=== PATIENT | female | born 1950 | race Caucasian/White ===

== ENCOUNTER 2017-12-03 12:07 | Observation (INO) ==
[2017-12-03] MEDS ORDERED: Morphine Inj 4 MG/ML Vial IV.PUSH ONE (12:22)
[2017-12-03 12:51] LABS: Baso # (Auto) 0.1 th/mm3 (0.0-0.2); Baso % (Auto) 0.7 % (0.0-2.0); Eos # (Auto) 0.1 th/mm3 (0.0-0.4); Eos % (Auto) 0.9 % (0.0-4.0); Hematocrit 35.6 % (35.0-46.0); Hemoglobin 12.6 gm/dL (11.6-15.3); Lymph # (Auto) 1.4 th/mm3 (1.0-4.8); Lymph % (Auto) 17.1 % (9.0-44.0); Mean Corpuscular HGB Conc 35.3 % (32.0-36.0); Mean Corpuscular Hemoglobin 36.7 pg (27.0-34.0); Mean Corpuscular Volume 103.8 fL (80.0-100.0); Mean Platelet Volume 6.9 fL (7.0-11.0); Mono # (Auto) 0.8 th/mm3 (0.0-0.9); Mono % (Auto) 9.5 % (0.0-8.0); Neut # (Auto) 5.8 th/mm3 (1.8-7.7); Neut % (Auto) 71.8 % (16.0-70.0); Platelet Count 128 th/mm3 (150-450); Red Blood Count 3.42 mil/mm3 (4.00-5.30); Red Cell Distribution Width 15.2 % (11.6-17.2); White Blood Count 8.1 th/mm3 (4.0-11.0)
[2017-12-03 13:01] LABS: Activated Partial Thrombo Time 21.9 sec (24.3-30.1); Prothrombin Time 10.4 sec (9.8-11.6)
--- NOTE | 2017-12-03 13:02 | XR ---
EXAM DATE: 12/03/2017 12:50 PM EDT AGE/SEX: 67 years / Female INDICATIONS: Congestion with mid sternal chest pains, radiating into right arm. CLINICAL DATA: This is the patient's initial encounter. Patient reports that signs and symptoms have been present for 2 days and indicates a pain score of 7/10. MEDICAL/SURGICAL HISTORY: None. None. COMPARISON: [facility] [place], 12/10/[place]. . FINDINGS: A single AP view of the chest demonstrates the lungs to be symmetrically aerated without evidence of mass, infiltrate or effusion. The cardiomediastinal contours are unremarkable. Osseous structures a re intact. CONCLUSION: No acute disease Electronically signed by: Thomas Amezquita MD 12/03/2017 1:00 PM EDT
[2017-12-03 13:09] LABS: Alanine Aminotransferase 19 U/L (10-53); Anion Gap 10 meq/L (5-15); Aspartate Aminotransferase 21 U/L (15-37); Blood Urea Nitrogen 11 mg/dL (7-18); Calcium 8.3 mg/dL (8.5-10.1); Carbon Dioxide 28.7 meq/L (21.0-32.0); Chloride 104 meq/L (98-107); Glomerular Filtration Rate Greater Than 89 mL/min (>89); Glucose,Random 232 mg/dL (74-106); Potassium 3.5 meq/L (3.5-5.1); Sodium 143 meq/L (136-145)
[2017-12-03 13:13] LABS: Alkaline Phosphatase 67 U/L (45-117); Total Protein 6.8 g/dL (6.4-8.2)
[2017-12-03 13:17] LABS: Creatine Kinase 96 U/L (26-192)
--- NOTE | 2017-12-03 14:25 | ED ---
HPI General Chief complaint: Chest Pain Stated complaint: Chest Pain Time Seen by Provider: 12/03/17 12:15 Source: patient Mode of arrival: ambulatory Limitations: no limitations History of Present Illness HPI narrative: Planing of chest pain and leg pain. She says the leg pain is been going on for the past few days and makes her feel like she cannot walk due to pain. She says she started to have left-sided chest pain on and off for the past 3 days. She says it was worse today, so she came in. She denies cough or cold symptoms. She denies fever chills. She has not taken anything for her pain. She has history of diabetes and hypertension, but has not had her medication for the past few days due to her living situation. Severity is mild to moderate. Related Data Home Medications Medication Instructions Recorded Confirmed atorvastatin 20 mg PO DAILY 12/03/17 12/03/17 lisinopril 10 mg PO DAILY 12/03/17 12/03/17 metformin 1,000 mg PO BID 12/03/17 12/03/17 Allergies Allergy/AdvReac Type Severity Reaction Status Date / Time No Known Allergies Allergy Verified 12/03/17 12:31 Review of Systems ROS: all other systems reviewed are negative Constitutional Denies chills and Denies fever(s) ENT Denies dizziness Cardiovascular Reports chest pain and Denies edema Respiratory Denies cough and Denies wheezing Gastrointestinal Denies abdominal pain and Reports nausea Musculoskeletal Reports myalgias Integumentary/Breasts Denies lesions, Denies rash and Denies sores Neurologic Denies focal weakness and Denies numbness [facility] Medical History Medical History Anxiety (Acute) Diabetes (Acute) Hypertension (Acute) Social History Social History Substance History: No History of Abuse Second Hand Smoke Exposure: Yes Smoking Status: Current every day smoker Tobacco Type: Cigarettes How Often Do You Have a Drink Containing Alcohol: 2 to 4 times a month Recent Travel in [facility] within the Last 8 Weeks: No Recent Out of Country Travel within the Last 8 Weeks: No Immunization History Tetanus Immunization: <5 Years Hx Influenza Vaccine This Season: Yes Exam Narrative Exam Narrative: GENERAL: Awake and alert, in no acute distress. SKIN: Focused skin assessment warm/dry. HEAD: Atraumatic. Normocephalic. EYES: Pupils equal and round. No scleral icterus. ENT: Mucous membranes pink and moist. NECK: Trachea midline. No JVD. CARDIOVASCULAR: Regular rate and rhythm. No murmur appreciated. RESPIRATORY: No accessory muscle use. Clear to auscultation. Breath sounds equal bilaterally. GASTROINTESTINAL: Abdomen soft, non-tender, nondistended. MUSCULOSKELETAL: No obvious deformities. No clubbing. No cyanosis. No edema. No calf tenderness, pedal pulses intact. NEUROLOGICAL: Awake and alert. No obvious cranial nerve deficits. Motor grossly within normal limits. Normal speech. PSYCHIATRIC: Appropriate mood and affect; insight and judgment normal. Course Initial Documented Vital Signs Pulse Rate 102 H 12/03/17 12:11 Respiratory Rate 22 12/03/17 12:11 Blood Pressure 117/60 12/03/17 12:11 Pulse Oximetry 97 12/03/17 12:11 Last Documented Vital Signs Temperature 98.0 F 12/03/17 16:10 Pulse Rate 83 12/03/17 16:10 Respiratory Rate 18 12/03/17 16:10 Blood Pressure 135/60 12/03/17 16:10 Pulse Oximetry 95 12/03/17 13:13 Medical Decision Making MDM Narrative Medical decision making narrative: Patient is a 67-year-old female who comes in pain. Exam shows no acute abnormalities. IV established, labs sent. Labs show no acute abnormalities. Patient given aspirin, morphine. She reports feeling better, but is still concerned about her chest pain. She says the leg pain only comes on when she moves. She be placed in chest pain center for further management. Medical Screen Exam Complete: Yes Emergency Medical Condition: Yes Differential Diagnosis Differential Diagnosis: ACS versus NSTEMI versus STEMI versus dehydration versus electrolyte abnormality Medical Records Medical records reviewed: Yes I reviewed the patient's medical records. Lab Data Lab results reviewed: Yes I reviewed the patient's lab results. Result diagrams: 12/03/17 12:33 12/03/17 12:33 Lab Results 12/03/17 12/03/17 12/03/17 Range/Units 12:33 12:33 12:33 WBC 8.1 (4.0-11.0) th/mm3 RBC 3.42 L (4.00-5.30) mil/mm3 Hgb 12.6 (11.6-15.3) gm/dL Hct 35.6 (35.0-46.0) % MCV 103.8 H (80.0-100.0) fL MCH 36.7 H (27.0-34.0) pg MCHC 35.3 (32.0-36.0) % RDW 15.2 (11.6-17.2) % Plt Count 128 L (150-450) th/mm3 MPV 6.9 L (7.0-11.0) fL Neut % (Auto) 71.8 H (16.0-70.0) % Lymph % (Auto) 17.1 (9.0-44.0) % [place] % (Auto) 9.5 H (0.0-8.0) % Eos % (Auto) 0.9 (0.0-4.0) % Baso % (Auto) 0.7 (0.0-2.0) % Neut # (Auto) 5.8 (1.8-7.7) th/mm3 Lymph # (Auto) 1.4 (1.0-4.8) th/mm3 [place] # (Auto) 0.8 (0.0-0.9) th/mm3 Eos # (Auto) 0.1 (0.0-0.4) th/mm3 Baso # (Auto) 0.1 (0.0-0.2) th/mm3 WBC Differential . Differential Comment Auto diff final PT 10.4 (9.8-11.6) sec INR 1.0 Ratio APTT 21.9 L (24.3-30.1) sec Sodium 143 (136-145) meq/L Potassium 3.5 (3.5-5.1) meq/L Chloride 104 (98-107) meq/L Carbon Dioxide 28.7 (21.0-32.0) meq/L Anion Gap 10 (5-15) meq/L BUN 11 (7-18) mg/dL Creatinine 0.60 (0.50-1.00) mg/dL Estimated GFR Greater than 89 (>89) mL/min POC Glucose (68-110) mg/dl Random Glucose 232 H (74-106) mg/dL Calcium 8.3 L (8.5-10.1) mg/dL Total Bilirubin 0.5 (0.2-1.0) mg/dL AST 21 (15-37) U/L ALT 19 (10-53) U/L Alkaline Phosphatase 67 (45-117) U/L Total Creatine Kinase 96 (26-192) U/L Troponin I Less than 0.02 L (0.02-0.05) ng/mL B-Natriuretic Peptide (0-100) pg/mL Total Protein 6.8 (6.4-8.2) g/dL Albumin 3.0 L (3.4-5.0) g/dL 12/03/17 12/03/17 12/03/17 Range/Units 12:33 15:56 18:10 WBC (4.0-11.0) th/mm3 RBC (4.00-5.30) mil/mm3 Hgb (11.6-15.3) gm/dL Hct (35.0-46.0) % MCV (80.0-100.0) fL MCH (27.0-34.0) pg MCHC (32.0-36.0) % RDW (11.6-17.2) % Plt Count (150-450) th/mm3 MPV (7.0-11.0) fL Neut % (Auto) (16.0-70.0) % Lymph % (Auto) (9.0-44.0) % [place] % (Auto) (0.0-8.0) % Eos % (Auto) (0.0-4.0) % Baso % (Auto) (0.0-2.0) % Neut # (Auto) (1.8-7.7) th/mm3 Lymph # (Auto) (1.0-4.8) th/mm3 [place] # (Auto) (0.0-0.9) th/mm3 Eos # (Auto) (0.0-0.4) th/mm3 Baso # (Auto) (0.0-0.2) th/mm3 WBC Differential Differential Comment PT (9.8-11.6) sec INR Ratio APTT (24.3-30.1) sec Sodium (136-145) meq/L Potassium (3.5-5.1) meq/L Chloride (98-107) meq/L Carbon Dioxide (21.0-32.0) meq/L Anion Gap (5-15) meq/L BUN (7-18) mg/dL Creatinine (0.50-1.00) mg/dL Estimated GFR (>89) mL/min POC Glucose 181 H (68-110) mg/dl Random Glucose (74-106) mg/dL Calcium (8.5-10.1) mg/dL Total Bilirubin (0.2-1.0) mg/dL AST (15-37) U/L ALT (10-53) U/L Alkaline Phosphatase (45-117) U/L Total Creatine Kinase 87 (26-192) U/L Troponin I Less than 0.02 L (0.02-0.05) ng/mL B-Natriuretic Peptide 28 (0-100) pg/mL Total Protein (6.4-8.2) g/dL Albumin (3.4-5.0) g/dL Imaging Data Radiologist's impression: Chest X-Ray 12/03/17 12:22 CONCLUSION: No acute disease ECG Data EKG Prior to Arrival: Yes Attestation: I personally reviewed and interpreted this ECG as follows: Interpretation: ECG shows sinus rhythm with frequent PVCs, rate of 89, no ST elevation or depression Discharge Plan Discharge Disposition Patient Disposition: 30 Still Patient Discharge Condition Condition: Stable Discharge Details Diagnosis: Atypical chest pain Physicians Team ED Provider: Jazmin Nino Primary Care Provider: Jonnie Henry Attending Provider: Meryl Hernandez ED Status: Left Department Discharge Information Discharge Date/Time: 12/03/17 16:32
[2017-12-03] MEDS ORDERED: ALPRAZolam 0.25 MG Tablet PO PRN (15:50)
[2017-12-03] MEDS ORDERED: Acetaminophen 500 MG Tablet PO PRN (15:55)
--- NOTE | 2017-12-03 16:14 | P.HPCA ---
History of Present Illness Primary Care Physician: Jonnie Henry Chief Complaint: Chest pain History of Present Illness: This is a 67-year-old female that presents to ED via private vehicle with history of hypertension, hyperlipidemia, diabetes, tobacco abuse with complaint of having intermittent chest discomforts for a few years. States the discomfort usually lasts a few hours. Will concerned her was the discomfort being more intense this morning. She states she was at home when it occurred. Was a 6 out of 10. Center of her chest and described as achy. Also discomfort will at times radiate down her right arm. She become short of breath and nauseous at times. Really diaphoretic. States that the discomfort mostly occurs when she is upset or stressed over issues. However at times it also had occurred while at work where she was working in a longterm. Currently denies chest discomfort. Also complains of bilateral leg pains. When asked to specify where the discomfort is in the legs, patient states "my legs hurt all over." Has not noticed swelling. No trauma. States she saw a information support project manager at the urging of her PCP. Follows Dr. Rios. States she had a stress test about a year ago and believes it was okay. Patient has history of diabetes, hypertension, hyperlipidemia, and tobacco abuse. Patient is taking metformin, lisinopril, atorvastatin, and medication for anxiety. Denies family history of CAD. Patient has had appendectomy and surgery for an ovarian cyst. Patient continues to smoke cigarettes, states she smokes one half pack a series daily for 50 years. Has occasional alcohol. Denies illicit drug use. - Diagnosis (1) Chest pain (2) Hypertension (3) Hyperlipidemia (4) Diabetes (5) Tobacco abuse Review of Systems General: Patient denies fevers, chills, and recent travel. HEENT: Patient denies headache, sore throat, difficulty swallowing. Cardiovascular: Has the chest discomfort as mentioned above. Denies sensation of heart beating rapidly or irregularly. No syncope. Rarely diaphoretic. Respiratory: Complains of shortness of breath with symptoms. Denies shortness of breath or inspirational chest discomfort. Denies coughing wheezing or hemoptysis. GI: Occasional nausea. Patient denies vomiting, diarrhea, abdominal pain, bloody stools. Musculoskeletal: Complains of both legs hurting all over. Denies edema in her legs. Neurovascular: Patient denies numbness, tingling, weakness in extremities. Denies headache. Endocrine: Denies polyuria and polydipsia. Hematologic: Denies easy bruising. Skin: Denies rash or itching. PMFSH - History History Provided By: Patient, [employer] / EMT - Medical History Medical History: Medical History (Last Reviewed 12/03/17 @ 15:26 by Jazmin Nino MD) Anxiety Diabetes Hypertension - Tobacco History Tobacco Use In Past 30 Days: Yes Smoking Status: Current every day smoker Tobacco Type: Cigarettes - Alcohol History How Often Do You Have a Drink Containing Alcohol: Monthly or less - Substance Use History Substance History: No History of Abuse - Travel History Recent Travel in the [place] Within the Last 8 Weeks: No Recent Travel Out of the Country Within the Last 8 Weeks: No - Immunization History Tetanus Immunization: <5 Years Hx Influenza Vaccine This Season: Yes Medications and Allergies Active Medications: Active Medications Acetaminophen (Tylenol) 500 mg PO Q6H PRN PRN Reason: pain scale 1-5 Hydrocodone Bitart/Acetaminophen ([place] 7.5/325) 1 tab PO Q6H PRN PRN Reason: pain scale 6-10 Albuterol (Duoneb Neb (Prn)) 1 ampul NEB Q4HR NEB PRN PRN Reason: SHORTNESS OF BREATH/WHEEZING Alprazolam (Xanax) 0.25 mg PO Q8H PRN PRN Reason: ANXIETY Aspirin (Aspirin) 325 mg PO DAILY MARY Atorvastatin Calcium (Lipitor) 20 mg PO DAILY MARY Clonidine HCl (Catapres) 0.1 mg PO Q6H PRN PRN Reason: SBP >165 OR DBP > 110 Insulin Human Regular (Novolin R Correctional Sugar Inj) 0 units SQ ACHS MARY; Protocol Lisinopril (Prinivil) 10 mg PO DAILY MARY Ondansetron HCl (Zofran Inj) 4 mg IV.PUSH Q6H PRN PRN Reason: NAUSEA Pantoprazole Sodium (Protonix) 40 mg PO DAILY MARY Sodium Chloride (Ns Flush) 2 ml IV.FLUSH UNSCH PRN PRN Reason: FLUSH AFTER USING IV ACCESS Sodium Chloride (Ns Flush) 2 ml IV.FLUSH BID MARY Sodium Chloride (Ns Flush) 2 ml IV.FLUSH PRN PRN PRN Reason: FLUSH AFTER USING IV ACCESS Allergies Allergy/AdvReac Type Severity Reaction Status Date / Time No Known Allergies Allergy Verified 12/03/17 12:31 Home Medications Medication Instructions Recorded Confirmed Type atorvastatin 20 mg PO DAILY 12/03/17 12/03/17 History lisinopril 10 mg PO DAILY 12/03/17 12/03/17 History metformin 1,000 mg PO BID 12/03/17 12/03/17 History Exam Vital signs: Vital Signs 12/03/17 12:11 12/03/17 12:22 12/03/17 13:13 Pulse Rate 102 H 74 Respiratory Rate 22 18 Blood Pressure 117/60 118/59 L Pulse Oximetry 97 98 95 Intake & Output 12/02/17 12/03/17 12/03/17 18:59 06:59 18:59 Weight 90.718 kg Narrative: GENERAL: This is a well-nourished, well-developed patient, in no apparent distress. Patient speaks in clear complete sentences. Patient is pleasant. HEENT: Head is atraumatic and normocephalic. Neck is supple without lymphadenopathy and trachea is midline. No JVD or carotid bruits. CARDIOVASCULAR: Regular rate and rhythm without murmurs, gallops, or rubs. RESPIRATORY: Clear to auscultation. Breath sounds equal bilaterally. No wheezes , rales, or rhonchi. Chest wall is tender but not the same type of discomfort that brought her to the ED. No use of accessory muscles. GASTROINTESTINAL: Abdomen is nontender, nondistended. Abdomen soft. No obvious pulsatile mass or bruit. No CVA tenderness. Strong femoral pulses bilaterally. Normal bowel sounds in all quadrants. MUSCULOSKELETAL: Patient is moving upper and lower extremities freely. No calf tenderness or edema, no Homans sign. Strong pulses in upper and lower extremities. NEUROLOGICAL: Patient is alert and oriented. Cranial nerves 2-12 are grossly intact. No focal deficits and speech is clear. SKIN: No rash and turgor is normal. Results 12/03/17 12:33 12/03/17 12:33 Cardiac Enzymes 12/03/17 12/03/17 Range/Units 12:33 12:33 AST 21 (15-37) U/L Troponin I Less than 0.02 L (0.02-0.05) ng/mL B-Natriuretic Peptide 28 (0-100) pg/mL Coagulation 12/03/17 12/03/17 Range/Units 12:33 12:33 PT 10.4 (9.8-11.6) sec APTT 21.9 L (24.3-30.1) sec B-Natriuretic Peptide 28 (0-100) pg/mL CBC 12/03/17 Range/Units 12:33 WBC 8.1 (4.0-11.0) th/mm3 RBC 3.42 L (4.00-5.30) mil/mm3 Hgb 12.6 (11.6-15.3) gm/dL Hct 35.6 (35.0-46.0) % Plt Count 128 L (150-450) th/mm3 Neut # (Auto) 5.8 (1.8-7.7) th/mm3 Lymph # (Auto) 1.4 (1.0-4.8) th/mm3 [place] # (Auto) 0.8 (0.0-0.9) th/mm3 Eos # (Auto) 0.1 (0.0-0.4) th/mm3 Baso # (Auto) 0.1 (0.0-0.2) th/mm3 Comprehensive Metabolic Panel 12/03/17 Range/Units 12:33 Sodium 143 (136-145) meq/L Potassium 3.5 (3.5-5.1) meq/L Chloride 104 (98-107) meq/L Carbon Dioxide 28.7 (21.0-32.0) meq/L BUN 11 (7-18) mg/dL Creatinine 0.60 (0.50-1.00) mg/dL Calcium 8.3 L (8.5-10.1) mg/dL AST 21 (15-37) U/L ALT 19 (10-53) U/L Alkaline Phosphatase 67 (45-117) U/L Total Protein 6.8 (6.4-8.2) g/dL Albumin 3.0 L (3.4-5.0) g/dL Intake and Output 12/03/17 12/03/17 12/03/17 06:59 14:59 22:59 Other: Weight 90.718 kg Patient Weight 12/04/17 06:59 Weight 90.718 kg EKG interpretations - EKG EKG shows: sinus rhythm (Initial EKG is sinus rhythm rate of 95 with first- degree AV block. No significant ST segment depressions or elevations.) Caprini VTE Risk Assessment Caprini VTE Risk Assessment: Moderate/High Risk (score >= 2) Caprini Risk Assessment Model: Point Value = 1 Point Value = 2 Point Value = 3 Point Value = 5 Age 41-60 Minor surgery BMI > 25 kg/m2 Swollen legs Varicose veins or History of unexplained or recurrent spontaneous Oral contraceptives or hormone replacement Sepsis (< 1 month) Serious lung disease, including pneumonia (< 1 month) Abnormal pulmonary function Acute myocardial infarction Congestive heart failure (< 1 month) History of inflammatory bowel disease Medical patient at bed rest Age 61-74 Arthroscopic surgery Major open surgery (> 45 min) Laparoscopic surgery (> 45 min) Malignancy Confined to bed (> 72 hours) Immobilizing plaster cast Central venous access Age >= 75 History of VTE Family history of VTE Factor V Leiden Prothrombin [id number] Lupus anticoagulant Anticardiolipin antibodies Elevated serum homocysteine Heparin-induced thrombocytopenia Other congenital or acquired thrombophilia Stroke (< 1 month) Elective arthroplasty Hip, pelvis, or leg fracture Acute spinal cord injury (< 1 month) Prophylaxis Regimen: Total Risk Factor Score Risk Level Prophylaxis Regimen 0-1 Low Early ambulation 2 Moderate Order ONE of the following: *Sequential Compression Device (SCD) *Heparin 5000 units SQ BID 3-4 Higher Order ONE of the following medications: *Heparin 5000 units SQ TID *Enoxaparin/Lovenox 40 mg SQ daily (WT < 150 kg, CrCl > 30 mL/min) *Enoxaparin/Lovenox 30 mg SQ daily (WT < 150 kg, CrCl > 10-29 mL/min) *Enoxaparin/Lovenox 30 mg SQ BID (WT < 150 kg, CrCl > 30 mL/min) AND/OR *Sequential Compression Device (SCD) 5 or more Highest Order ONE of the following medications: *Heparin 5000 units SQ TID (Preferred with Epidurals) *Enoxaparin/Lovenox 40 mg SQ daily (WT < 150 kg, CrCl > 30 mL/min) *Enoxaparin/Lovenox 30 mg SQ daily (WT < 150 kg, CrCl > 10-29 mL/min) *Enoxaparin/Lovenox 30 mg SQ BID (WT < 150 kg, CrCl > 30 mL/min) AND *Sequential Compression Device (SCD) Assessment and Plan - Assessment (1) Chest pain Code(s): R07.9 - Chest pain, unspecified Status: Acute (2) Hypertension Code(s): I10 - Essential (primary) hypertension Status: Acute (3) Hyperlipidemia Code(s): E78.5 - Hyperlipidemia, unspecified Status: Acute (4) Diabetes Code(s): E11.9 - Type 2 diabetes mellitus without complications Status: Acute (5) Tobacco abuse Code(s): Z72.0 - Tobacco use Status: Acute - Plan * Chest pain: Patient will continue to have serial cardiac enzymes and EKGs for ruling out purposes. She will be seen by Dr. Hernandez of cardiology in the chest pain center. I discussed this patient with Dr. Rios. Patient will have a Lexiscan in the morning if she rules out. She will be discharged home with instructions to follow-up with her information support project manager and PCP if the stress test is nonischemic. Return to ED for interval issues. * Hypertension: Continue medication. * Hyperlipidemia: Continue medication. * Diabetes: Sliding scale insulin coverage while in chest pain center. Follow diabetic diet. Resume medication at discharge. * Tobacco abuse: Patient counseled on importance of smoking cessation. Patient is stable at this time. She is agreeable to this plan.
[2017-12-03 16:50] LABS: Creatine Kinase 87 U/L (26-192)
[2017-12-03] MEDS ORDERED: Dextrose 50% in Water 50 ML Vial IV.PUSH PRN (17:57)
[2017-12-03] MEDS: Insulin NovoLIN Regular Correctional Sugar Inj SQ SCH ×2 (19:36→22:09)
[2017-12-03 22:18] LABS: Creatine Kinase 94 U/L (26-192)
[2017-12-04] MEDS ORDERED: Aspirin 325 MG Tablet PO SCH (09:00)
[2017-12-04] MEDS ORDERED: Lisinopril 10 MG Tablet PO SCH (09:00)
[2017-12-04 09:40] VITALS: BP 130/58; RESP 12; TEMP 97.9; O2SAT 98
[2017-12-04] MEDS: Insulin NovoLIN Regular Correctional Sugar Inj SQ SCH ×2 (09:50→14:52)
[2017-12-04] MEDS ORDERED: Regadenoson Inj 0.4 MG/5 ML Syringe IV.PUSH ONE (12:28)
--- NOTE | 2017-12-04 13:57 | NM ---
EXAM DATE: 12/04/2017 1:46 PM EDT AGE/SEX: 67 years / Female INDICATIONS:Angina. . Left chest pain with leg pain. CLINICAL DATA: This is the patient's initial encounter. Patient reports that signs and symptoms have been present for 1 day and indicates a pain score of 6/10. MEDICAL/SURGICAL HISTORY: Diabetes mellitus type II. Hypertension. None. COMPARISON: No prior exams available for comparison. DOSE: 8.8 mCi Tc 99m Myoview at rest 25.8 mCi [id number] at stress 0.4 mg Lexiscan STRESS SYMPTOMS: None. EJECTION FRACTION: 65 % TECHNIQUE: The patient underwent pharmacologic stress with infusion of prescribed dose. Continuous ECG tracing was monitored during stress. Gated SPECT imaging was performed after stress and conventi onal SPECT imaging was performed at rest. The examination was performed on a SPECT/CT scanner, both attenuation and non-corrected datasets were reviewed. FINDINGS: Distribution: The maximum perfused segment at stress is in the anterolateral wall. Perfusion Study: The pattern of perfusion at stress is within normal limits. Gated Study: There are intact wall motion and wall thickening without hypokinetic or dyskinetic segm ents. The ejection fraction is calculated at 65%. RISK CATEGORY: Low (<1% Annual Motality Rate) CONCLUSION: Unremarkable myocardial perfusion. Electronically signed by: Osito Rudd MD 12/04/2017 1:55 PM EDT
[2017-12-04 14:51] VITALS: PULSE 82
--- NOTE | 2017-12-04 16:14 | ECG ---
Date Performed: 12/03/2017 Time Performed: 12:23:22 PTAGE: 67 years EKG: Sinus rhythm WITH FREQUENT SUPRAVENTRICULAR PREMATURE COMPLEXES MARKED LEFT AXIS DEVIATION SEPTAL MYOCARDIAL INFA RCTION ABNORMAL ECG Since PREVIOUS TRACING , no significant change noted PREVIOUS TRACIN06/15/2014 11.20 DOCTOR: Meryl Hernandez Interpretating Date/Time 12/04/2017 16:14:24
--- NOTE | 2017-12-04 16:17 | ECG ---
Date Performed: 12/03/2017 Time Performed: 16:33:20 PTAGE: 67 years EKG: Sinus rhythm WITH FIRST DEGREE AV BLOCK WITH OCCASIONAL SUPRAVENTRICULAR PREMATURE COMPLEXES MARKED LEFT AXIS DEV IATION INCOMPLETE RIGHT BUNDLE BRANCH BLOCK SEPTAL MYOCARDIAL INFARCTION ABNORMAL ECG Since PREVIOUS TRACING , no significant change noted PREVIOUS TRACIN12/03/2017 15.57 DOCTOR: Meryl Hernandez Interpretating Date/Time 12/04/2017 16:15:18
--- NOTE | 2017-12-04 16:17 | ECG ---
Date Performed: 12/03/2017 Time Performed: 20:33:54 PTAGE: 67 years EKG: Sinus rhythm WITH FIRST DEGREE AV BLOCK WITH OCCASIONAL SUPRAVENTRICULAR PREMATURE COMPLEXES MARKED LEFT AXIS DEV IATION POSSIBLE RIGHT VENTRICULAR CONDUCTION DELAY SEPTAL MYOCARDIAL INFARCTION ABNORMAL ECG Since PREVIOUS TRACING , no significant change noted PREVIOUS TRACIN12/03/2017 20.32 DOCTOR: Meryl Hernandez Interpretating Date/Time 12/04/2017 16:16:19
--- NOTE | 2017-12-04 16:26 | TR ---
Date Performed: 12/04/2017 Time Performed: 12:17:33 DOCTOR: Meryl Hernandez DRUG LIST: CLINICAL HISTORY: REASON FOR TEST: REASON FOR ENDING: OBSERVATION: CONCLUSION: Lexiscan stress test was performed under standard four minute protocol. Radionucl[place] e was injected one minute prior to ending the test. No electrocardiographic abormalities were present to suggest ischemia. Nuclear imaging and interpretation are pending. COMMENTS: No electrocardiographic abormalities were present to suggest ischemia. Nuclear imaging and interpretation are pending.
== END 2017-12-04 16:13 | disposition home or self-care (01) ==
LOC: NEPE 12:07 → NEDA 12:07 → NEPFCDU 16:01
PROVIDERS: ADMIT Internal Medicine Interventional Cardiology; ATTEND Internal Medicine Interventional Cardiology
DX: R07.89 Other chest pain; R06.02 Shortness of breath; E78.5 Hyperlipidemia, unspecified; I44.0 Atrioventricular block, first degree; F41.9 Anxiety disorder, unspecified; F17.210 Nicotine dependence, cigarettes, uncomplicated; E11.9 Type 2 diabetes mellitus without complications; Z79.84 Long term (current) use of oral hypoglycemic drugs; I10 Essential (primary) hypertension; R61 Generalized hyperhidrosis; R94.31 Abnormal electrocardiogram [ECG] [EKG]; M79.605 Pain in left leg; R11.0 Nausea; M79.604 Pain in right leg